=== PATIENT | female | born 1950 | race Caucasian/White ===

== ENCOUNTER 2025-10-11 09:56 | Outpatient (RCR) | payer OTHER | END 2025-10-17 | LOC: M ST 09:56 | PROVIDERS: ATTEND Physician Assistant | DX: R49.0 Dysphonia (principal); J38.00 Paralysis of vocal cords and larynx, unspecified; J38.3 Other diseases of vocal cords ==

== ENCOUNTER 2025-11-16 10:15 | Outpatient (RCR) | payer OTHER | END 2025-11-17 | disposition still patient (30) | LOC: M ST 10:15 | PROVIDERS: ATTEND Physician Assistant | DX: R49.0 Dysphonia (principal); J38.00 Paralysis of vocal cords and larynx, unspecified ==